=== PATIENT | female | born 1995 | race Caucasian/White ===

== ENCOUNTER 2020-08-10 16:12 | Emergency (ER) | payer OTHER ==
[2020-08-10 16:26] VITALS: BP 118/75; PULSE 81; TEMP 98.2; BMI 29.4
[2020-08-10] MEDS ORDERED: KETOROLAC TROMETHAMINE 60 MG/2 ML VIAL IM ONE (17:07)
[2020-08-10] MEDS ORDERED: KETOROLAC TROMETHAMINE 30 MG/1 ML VIAL ONE (17:15)
== END 2020-08-10 18:04 | disposition home or self-care (01) ==
LOC: JERFT 16:12
PROC: 3E0233Z Introduction of Anti-inflammatory into Muscle, Percutaneous Approach (ICD-10-PCS; principal; 2020-08-10)
DX: H20.9 Unspecified iridocyclitis (principal)
CPT/HCPCS: 99284-25